=== PATIENT | male | born 2005 ===

== ENCOUNTER → 2025-01-28 | Outpatient (CLI) | payer OTHER ==
[~2025-01-28] MED LIST: AMPDEX5 PO; CODACEE120 PO; INTUNIV1 MG; SILSUL1TC TOP
== END ==
LOC: LAB 17:10 → LAB SHORT 17:10
DX: R73.9 Hyperglycemia, unspecified (principal)
CPT/HCPCS: 83036

== ENCOUNTER 2025-03-13 18:54 | Observation (INO) | payer OTHER ==
[~2025-03-13] VITALS: Ht 180.3 cm; Wt 91.8 kg
[2025-03-13] MEDS ORDERED: Ondansetron HCl 2 MG / ML 2ML Vial IV ONE (19:10)
[2025-03-13] MEDS ORDERED: Ketorolac Tromethamine 15mg Vial IV ONE (19:10)
[2025-03-13 19:23] LABS: BASOPHILS ABSOLUTE AUTO 0.05 K/mm3 (0.00-0.23); BASOPHILS PERCENT AUTO 0 % (0-2); EOSINOPHILS ABSOLUTE AUTO 0.01 K/mm3 (0.00-0.68); EOSINOPHILS PERCENT AUTO 0 % (0-6); Hematocrit 46.9 % (37.0-53.0); Hemoglobin 16.4 g/dL (13.5-17.5); IMMATURE GRAN ABSOLUTE AUTO 0.06 K/mm3 (0.00-0.10); IMMATURE GRAN PERCENT AUTO 0 % (0-1); LYMPHOCYTES ABSOLUTE AUTO 1.44 K/mm3 (0.84-5.20); LYMPHOCYTES PERCENT AUTO 8 % (21-46); MONOCYTES ABSOLUTE AUTO 0.69 K/mm3 (0.16-1.47); MONOCYTES PERCENT AUTO 4 % (4-13); Mean Corpuscular HGB Conc 35.0 g/dL (31.5-36.5); Mean Corpuscular Volume 86 fL (80-100); NEUTROPHILS ABSOLUTE AUTO 15.62 K/mm3 (1.96-9.15); NEUTROPHILS PERCENT AUTO 87 % (41-73); NRBC ABSOLUTE 0.00 K/mm3 (0.00-0.02); NRBC Auto 0.0 /100 WBC (0.0-0.2); Platelet Count 275 K/mm3 (150-400); RDW Coefficient Variation 11.9 % (11.7-14.2); RDW Standard Deviation 37.7 fL (35.1-46.3)
[2025-03-13 19:43] LABS: Alanine Aminotransfer (ALT/SGP 31.0 U/L (12-78); Albumin, Blood 4.3 g/dL (3.4-5.0); Albumin/Globulin Ratio 1.2 (0.8-1.8); Anion Gap 9.0 mmol/L (3-11); Aspartate Aminotrans (AST/SGOT 17.0 U/L (12-37); Bilirubin, Total 0.5 mg/dL (0.1-1.0); Blood Urea Nitrogen 19.0 mg/dL (8-21); CO2, Blood 23.0 mmol/L (21-32); Calcium, Blood 9.4 mg/dL (8.5-10.1); Chloride, Blood 106.0 mmol/L (98-108); Creatinine, Blood 0.75 mg/dL (0.60-1.20); Globulin, Blood 3.6 g/dL (2.2-4.0); Glucose, Blood 134.0 mg/dL (70-99); Potassium, Blood 4.1 mmol/L (3.5-5.5); Sodium, Blood 134.0 mmol/L (136-145); Total Protein, Blood 7.9 g/dL (6.4-8.2)
[2025-03-13 21:07] LABS: Source, Urine Clean Catch
[2025-03-13 21:09] LABS: Bilirubin, Urine Neg (Neg); Glucose Qualitative, Urine Neg (Neg); Ketones, Urine 3+ (Neg); Leukocyte Esterase, Urine Neg (Neg); Protein, Urine 2+ (Neg); Specific Gravity, Urine 1.015 (1.003-1.022); Urobilinogen, Urine NORM (Normal)
[2025-03-13 21:19] LABS: Color, Urine Pale Yellow (P-Yellow)
[2025-03-13 21:20] LABS: Red Blood Cells, Urine 0-2 /hpf (0-2); White Blood Cells, Urine 0-2 /hpf (0-5)
[2025-03-13] MEDS ORDERED: Piperacillin/Tazobactam Sod 4.5 GM in NS 100 ML IV ONE (21:20)
[2025-03-13] MEDS ORDERED: NS 1,000 ML IV SCH ×2 (21:25→21:30)
[2025-03-13] MEDS ORDERED: Ondansetron HCl 2 MG / ML 2ML Vial IV PRN ×2 (21:30→21:50)
[2025-03-13] MEDS ORDERED: HYDROmorphone HCl/Pf 1MG SYR IV PRN ×2 (21:30→21:35)
[2025-03-13] MEDS ORDERED: Morphine Sulfate 10 MG/ML 1MLSYR IV PRN (21:35)
[2025-03-13] MEDS ORDERED: FLU VACC TS2025-26(6MOS UP)/PF 45 MCG/0.5 ML SYRINGE IM SCH (21:45)
[2025-03-13] MEDS ORDERED: FentaNYL Citrate 50 MCG/ML 2 ML Injection IV PRN (21:45)
[2025-03-13] MEDS ORDERED: METAMUCIL PO (23:20)
[2025-03-13 23:30] VITALS: BP 124/73
--- NOTE | 2025-03-13 23:38 | NUR ---
RECEIVED REPORT FROM ED NURSE, YOLI RN AT 2444. PT WILL BE TRANSFERRED TO ROOM 358.
--- NOTE | 2025-03-13 23:39 | NUR ---
PT TO FLOOR AT 2312. PT ALERT AND ORIENTED X 4. ABLE TO MAKE NEEDS KNOWN. ON ROOM AIR. INDEPENDENT IN ROOM. ADMIT FOR ACUTE APPY, CONFIRMED ON CT. PT DENIES PAIN AT THIS TIME. 20G IN LAC IS PATENT/SALINE LOCKED. PT IS AUTISTIC. STUTTERS WHEN HE SPEAKS. DAD IS IN ROOM AND PROVIDES SO,E HISTORY. PT LIVES WITH MOM WHO IS ON HER WAY AND WILL STAY WITH PT THROUGHOUT THE NIGHT. PT IS NPO FOR SURGERY TOMORROW. VSS. CALL LIGHT IN REACH.
[2025-03-14] VITALS (12 sets, daily range): BP systolic 111–136; BP diastolic 62–83
--- NOTE | 2025-03-14 01:06 | NUR ---
Physician Communication Clarified IVF orders w/ Dr. Roberto Armendariz. ER order of Normal Saline @ 125 and order for continuous LR @ 125 both are to be discontinued. Pt's sodium is 134 and currently NPO status pending possible appendectomy w/ Dr. Fitzpatrick soon. Received, instead, a T.O. to give 2,000 mL NS @ 125 starting now.
[2025-03-14] MEDS ORDERED: NS 1,000 ML BAG IR SCH (01:10)
[2025-03-14] MEDS ORDERED: NS 1,000 ML IV SCH (01:25)
--- NOTE | 2025-03-14 03:48 | NUR ---
SHIFT SUMMARY PT ALERT AND ORIENTED X 4. HX AUTISM WITH SPEECH STUTTER. VERY PLEASANT AND COOPERATIVE WITH CARE. MOTHER IS PRESENT IN ROOM AT BEDSIDE. PT HAS A LAC PIV WITH NS RUNNING AT 125. NPO FOR SURGERY TODAY. PT CONTINUES TO DENY PAIN. VSS. CALL LIGHT IN REACH. BED IN LOWEST POSITION.
[2025-03-14] MEDS ORDERED: Piperacillin/Tazobactam Sod 3.375 GM in NS 100 ML IV SCH ×2 (06:00→08:00)
[2025-03-14] MEDS ORDERED: Midazolam HCl 1MG / ML 2ML Vial ONE (10:19)
[2025-03-14] MEDS ORDERED: FentaNYL Citrate 50 MCG/ML 2 ML Injection ONE (10:19)
[2025-03-14] MEDS ORDERED: Bupivacaine 0.5% W/EPI 1:200000 SDV 30 ML Vial ONE (11:54)
[2025-03-14] MEDS ORDERED: Rocuronium Bromide 10 MG/ML 5ML Injection IV ONE (11:57)
--- NOTE | 2025-03-14 12:11 | NUR ---
TO OR VIA CART
[2025-03-14] MEDS ORDERED: HYDROmorphone HCl/Pf 1MG SYR IV PRN ×2 (12:35)
[2025-03-14] MEDS ORDERED: FentaNYL Citrate 50 MCG/ML 2 ML Injection IV PRN ×2 (12:35)
[2025-03-14] MEDS ORDERED: Ondansetron HCl 2 MG / ML 2ML Vial IV PRN (12:35)
[2025-03-14] MEDS ORDERED: Albuterol 2.5 MG/3 ML VIAL INH PRN (12:35)
[2025-03-14] MEDS ORDERED: Dexamethasone Sod Phos 10 MG/ML 1ML VIAL ONE (12:47)
[2025-03-14] MEDS ORDERED: Ondansetron HCl 2 MG / ML 2ML Vial ONE (12:47)
[2025-03-14] MEDS ORDERED: HYDROmorphone HCl/Pf 1MG SYR ONE (13:02)
[2025-03-14] MEDS ORDERED: Sugammadex Sodium 200 MG/2ML SDV (100 MG/ML) ONE (13:07)
[2025-03-14] MEDS ORDERED: HYDROcodone 5-APAP 325 TAB PO PRN (13:25)
--- NOTE | 2025-03-14 13:27 | NUR ---
NOTE PT A&OX4. HX OF AUTISM. PT ADMITTED DUE ACUTE APPY. PT REPORTS NO CURRENT PAIN, NO SOB, NO CHEST PAIN, NO NAUSEA. PT NPO FOR SURGERY. MOM AT BEDSIDE. PT INDEPENDENT IN ROOM W MOM S ASSISTANCE. NS INFUSING THIS AM. PT GOT IV ANTIBIOTIC THIS AM. IV SALINE LOCKED. PT CONT OF URINE. PT ABLE TO MAKE NEEDS KNOWN. NIGHT RN REPORTED PT GOT CHG BATH. DAY SURG TRANSFERED TO OR WHILE THIS RN AT LUNCH.
[2025-03-14] MEDS ORDERED: Ketorolac Tromethamine 30mg Vial ONE (13:34)
--- NOTE | 2025-03-14 15:05 | NUR ---
NOTE THIS RN GOT REPORT FROM PARARESCUE MANAGER. PT BACK IN ROOM. PT TRANSFERED TO BED IN ROOM VIA RN ASSIST AND SLIDER SHEET. PT DROWSY ON ADMIT. PT REPORTS NO PAIN. NO SOB. POST OP VITALS STARTED PER LABORER PIPELINES. PT REPORTS SLEEPY. PT ON ROOM AIR. VSS. 96%. PT ON ADMIT VOMITTED. THIS RN STARTED IV FLUIDS. NS RUNNING AT 125ML/HR. ZOFRAN GIVEN PER PRN ORDER. PT GIVEN FAN TO DUE PT REPORTS "HOT, TEMP". PT HAS ADVANCE DIET ORDERS. FULL LIQUID DIET ORDERED FOR DINNER. ARACELI MIST GIVEN TO PT. PT IN BED, BED IN LOWEST POSITION, LOCKED, MOM AT BEDSIDE, CALL LIGHT IN REACH.
--- NOTE | 2025-03-14 18:40 | NUR ---
SHIFT SUMMARY PT A&OX4. PT ADMITTED DUE TO ACUTE APPY. PT HAD APPENDIX REMOVED TODAY. PT REPORTS NO NAUSEA SINCE EPISODE OF EMESIS. PT REPORTS NO SOB. PT REPORTS NO CHEST PAIN. NS RUNNING AT 125ML/HR. PT HAS ADVANCE DIET EMERITA ORDERS. PT ON FULL LIQUID DIET FOR DINNER, REPORTS "TOLERATING." PT REPORTS NO PAIN. PT INDEPENDENT IN ROOM. DAD AT BEDSIDE. PT VSS. PT IN BED, BED IN LOWEST POSITION, LOCKED, CALL LIGHT IN REACH. PT ON ROOM AIR. PT REPORTS VOID POST SURGICAL INTERVENTION.
[2025-03-15 00:22] VITALS: BP 122/75
--- NOTE | 2025-03-15 01:04 | NUR ---
SHIFT SUMMARY PT IS POD1 FOR APPENDECTOMY. A&OX4. ON ROOM AIR. SLEPT COMFORTABLY THROUGHOUT THE NIGHT. INDEPENDENT IN ROOM. MOTHER AT BEDSIDE TO HELP WITH CARES. PT HAS 3 ABDOMINAL LAP SITES C/D/I. TOLERATED FULL LIQUID DIET FOR DINNER. NO COMPLAINTS OF NAUSEA OR PAIN. LAV PIC PATENT, RUNNING Q8 ZOSYN. VSS. BED IN LOWEST POSITION. CALL LIGHT IN REACH.
[2025-03-15 04:23] VITALS: BP 111/77
[2025-03-15] MEDS ORDERED: NS 250 ML IV PRN (07:20)
[2025-03-15 08:11] VITALS: BP 121/77
[2025-03-15] MEDS ORDERED: HYDR1TAB94 PO (10:48)
--- NOTE | 2025-03-15 12:53 | NUR ---
DISCHARGE NOTE PT A&OX4. PT HAS HX OF AUTISM. PT ADMITTED DUE TO ACUTE APPY. PT POD1 FROM APPY REMOVAL. PT HAS 3 LAP SITES ON ABD. C/D/I. PT VSS. PT GOT REGULAR DIET FOR BREAKFAST, REPORTED NO PAIN OR NAUSEA. DR. LATHAM ROUNDED ON PT, ORDERED DISCHARGE. HARD SCRIPT COPY IN CHART. SENT WITH PT. HOURLY SIGN LANGUAGE INTERPRETER COMPLETED DISCHARGE. THIS RN WENT OVER DISCHARGE AND MEDS WITH PT. THIS RN SENT [facility] HOME W PT TO APPLY POST SHOWER TO UMBILICAL LAP SITE. PT ESCORTED TO PT ENTERANCE BY TAMPING MACHINE OPERATOR ROAD FORMS VIA WHEELCHAIR. TOOK ALL PERSONAL BELONGINGS. IV D/C.
== END 2025-03-15 11:57 | disposition home or self-care (01) ==
LOC: ER 18:54 → MEDS 18:55 → SURS 18:55 → MEDS 23:11
PROVIDERS: Student in an Organized Health Care Education/Training Program; ADMIT Surgery
PROC: 0DT Gastrointestinal System, Resection (ICD-10-PCS; principal; 2025-03-14 10:15)
DX: K35.80 Unspecified acute appendicitis (principal); F84.0 Autistic disorder; F90.9 Attention-deficit hyperactivity disorder, unspecified type; G40.89 Other seizures; H91.90 Unspecified hearing loss, unspecified ear; Z79.899 Other long term (current) drug therapy; Z87.19 Personal history of other diseases of the digestive system; Z96.21 Cochlear implant status
CPT/HCPCS: 74177; 80053; 81001; 83690; 85025; 88304; 96361; 96365-59; 96375; 99285-25; G0378; J1100; J1171; J1885; J2250; J2405; J2543; J2704; J3010; J7030; J7050; J7120; Q9967